=== PATIENT | female | born 1990 | race Hispanic/Latino ===

== ENCOUNTER 2017-05-18 03:51 | Emergency (ER) | payer BC, OTHER | END 2017-05-18 05:48 | disposition home or self-care (01) | LOC: EDH 03:51 | DX: K64.8 Other hemorrhoids (principal); Z72.0 Tobacco use | CPT/HCPCS: 99281 ==

== ENCOUNTER 2018-01-11 09:49 | Emergency (ER) | payer BC | END 2018-01-11 10:27 | disposition home or self-care (01) | LOC: EEVIPCON 09:49 → EDH 09:49 | DX: Z02.83 Encounter for blood-alcohol and blood-drug test (principal); Z72.0 Tobacco use ==

== ENCOUNTER → 2019-08-11 | Outpatient (CLI) | payer OTHER | END | disposition home or self-care (01) | LOC: LAB 12:39 | PROVIDERS: ATTEND Family Medicine | DX: R06.02 Shortness of breath (principal); M47.819 Spondylosis without myelopathy or radiculopathy, site unspecified; A64 Unspecified sexually transmitted disease; M54.9 Dorsalgia, unspecified; N64.4 Mastodynia; G80.9 Cerebral palsy, unspecified; R07.9 Chest pain, unspecified; Z88.3 Allergy status to other anti-infective agents; Z80.9 Family history of malignant neoplasm, unspecified ==

== ENCOUNTER 2020-05-22 03:57 | Emergency (ER) | payer OTHER | END 2020-05-22 06:53 | disposition home or self-care (01) | LOC: EDH 03:57 | DX: S60.221A Contusion of right hand, initial encounter (principal); X58.XXXA Exposure to other specified factors, initial encounter; Y93.89 Activity, other specified; Y92.89 Other specified places as the place of occurrence of the external cause; Y99.8 Other external cause status | CPT/HCPCS: 73130 ==